=== PATIENT | female | born 1965 | race Caucasian/White ===

== ENCOUNTER 2018-10-21 16:43 | Emergency (ER) | payer BC, OTHER ==
[2018-10-21 17:54] VITALS: BP 132/87
--- NOTE | 2018-10-21 18:37 | UC ---
UC General HPI - HPI Summary HPI Summary: 2 week hx worsening sinus pain, pressure and congestion. + headache and chills. hx thyroiditis and thinks may be having a little flare. she called her pcp and has an appointment for that in 1 week. the thyroid is not her concern now. no cp or palpitations. pt notes a hx of sinsuitis and the is the same. she has tried several otc tx's with no relief. - History of Current Complaint Chief Complaint: UCRespiratory Stated Complaint: SINUSES,CHILLS Time Seen by Provider: 10/21/18 18:29 Hx Obtained From: Patient Hx Last Menstrual Period: 2006 Onset/Duration: Gradual Onset Timing: Constant Pain Intensity: 6 Associated Signs & Symptoms: Negative: Chest Pain - Allergy/Home Medications Allergies/Adverse Reactions: Allergies Allergy/AdvReac Type Severity Reaction Status Date / Time erythromycin base Allergy Rash Verified 10/21/18 17:56 Penicillins Allergy Rash Verified 10/21/18 17:56 Home Medications: Home Medications Acetaminophen TAB* [Tylenol TAB*] 600 mg PO DAILY PRN 10/21/18 [History Confirmed 10/21/18] Ibuprofen TAB* [Motrin TAB* 800 MG] 800 mg PO Q4H PRN 10/21/18 [History Confirmed 10/21/18] Levothyroxine TAB* [Synthroid TAB*] 75 mcg PO DAILY 10/21/18 [History Confirmed 10/21/18] Topiramate TAB(*) [Topamax 25 MG tab] 25 mg PO BID 10/21/18 [History Confirmed 10/21/18] PMH/Surg Hx/FS Hx/Imm Hx - Additional Past Medical History Additional PMH: fluid retention Endocrine History: Thyroid Disease Neurological History: Migraine Psychological History: Depression - Surgical History Surgical History: Yes Surgery Procedure, Year, and Place: Hysterectomy, 4 , [facility], gallbladder , tonsilectomy,colon polyps - Social History Alcohol Use: None Substance Use Type: None Smoking Status (MU): Never Smoked Tobacco Review of Systems All Other Systems Reviewed And Are Negative: Yes Constitutional: Positive: Chills ENT: Positive: Nasal Discharge, Sinus Congestion, Sinus Pain/Tenderness Cardiovascular: Negative: Palpitations, Chest Pain Neurological: Positive: Headache Psychological: Negative: Anxious Physical Exam Triage Information Reviewed: Yes Appearance: Well-Appearing Vital Signs: Initial Vital Signs Temp 98.7 F 10/21/18 17:47 Pulse 95 10/21/18 17:47 Resp 18 10/21/18 17:47 BP 132/87 10/21/18 17:47 Pulse Ox 97 10/21/18 17:47 Vital Signs Reviewed: Yes Eyes: Positive: Conjunctiva Clear ENT: Positive: Pharynx normal, Nasal congestion, TMs normal, Sinus tenderness - frontal Neck: Positive: Supple, Nontender, No Lymphadenopathy, Other: - Thyroid nodules not appreciated and thyroid non tender. Respiratory: Positive: Lungs clear, Normal breath sounds, No respiratory distress Cardiovascular: Positive: RRR, No Murmur Abdomen Description: Positive: Nontender, No Organomegaly, Soft Bowel Sounds: Positive: Present Musculoskeletal: Positive: ROM Intact Neurological: Positive: Alert Psychological: Positive: Age Appropriate Behavior Skin Exam: Normal Course/Dx - Differential Dx - Multi-Symptom Differential Diagnoses: Other - nothing to suggest thyroid storm. thyroid condition is chronic and reoccuring plus pt has consulted her pcp and has f/u. exam c/w sinusitis. - Diagnoses Provider Diagnosis: Sinusitis Discharge - Sign-Out/Discharge Documenting (check all that apply): Patient Departure All imaging exams completed and their final reports reviewed: No Studies - Discharge Plan Condition: Stable Disposition: HOME Prescriptions: DOXYcycline CAP(*) [DOXYcycline 100MG CAP(*)] 100 mg PO BID 10 Days #20 cap Patient Education Materials: Sinusitis (ED) Referrals: David López MD [Primary Care Provider] - 7 Days - Billing Disposition and Condition Condition: STABLE Disposition: Home
== END 2018-10-21 18:47 | disposition home or self-care (01) ==
LOC: UCCORT 16:43
DX: J32.9 Chronic sinusitis, unspecified (principal); E07.9 Disorder of thyroid, unspecified; Z88.1 Allergy status to other antibiotic agents; Z88.0 Allergy status to penicillin; Z79.899 Other long term (current) drug therapy
CPT/HCPCS: 99212; G0463

== ENCOUNTER 2019-06-12 08:31 | Emergency (ER) | payer BC ==
[2019-06-12 09:02] VITALS: BP 122/78
--- NOTE | 2019-06-12 09:47 | ED ---
Headache - HPI Summary HPI Summary: 53 yr old female with a month long headache that she states has not gone away. Headache is generalized but also mostly in the back of the head. She has ringing in the ears. She has neck pain as well. She has light sensitivity. She states the headache is 7/10. She has blurred vision at times. She denies focal weakness, numbness, gait change. She states she has had headaches for 10 years, no imaging or work up, and the symptoms have gotten worse now. - History Of Current Complaint Chief Complaint: UCHeadache Stated Complaint: MIGRAINE Time Seen by Provider: 06/12/19 09:31 Hx Last Menstrual Period: 2006 - Allergies/Home Medications Allergies/Adverse Reactions: Allergies Allergy/AdvReac Type Severity Reaction Status Date / Time erythromycin base Allergy Rash Verified 06/12/19 09:02 Penicillins Allergy Rash Verified 06/12/19 09:02 PMH/Surg Hx/FS Hx/Imm Hx Endocrine/Hematology History: Reports: Hx Thyroid Disease - hypo Denies: Hx Diabetes, Hx Anemia Cardiovascular History: Denies: Hx Hypertension Respiratory History: Denies: Hx Asthma, Hx Chronic Obstructive Pulmonary Disease (COPD) GI History: Denies: Hx Jaundice, Hx Ulcer - Cancer History Cancer Type, Location and Year: colon polyps CA - Surgical History Surgery Procedure, Year, and Place: Hysterectomy, 4 , [facility], gallbladder , tonsilectomy,colon polyps Hx Anesthesia Reactions: No Infectious Disease History: No Infectious Disease History: Denies: Hx Hepatitis, Hx Human Immunodeficiency Virus (HIV), Traveled Outside the [place] in Last 30 Days - Family History Known Family History: Positive: None - Social History Alcohol Use: None Substance Use Type: Reports: None Smoking Status (MU): Never Smoked Tobacco Review of Systems Constitutional: Negative Positive: Headache All Other Systems Reviewed And Are Negative: Yes Physical Exam Triage Information Reviewed: Yes Vital Signs On Initial Exam: Initial Vitals Temp Pulse Resp BP Pulse Ox 98.1 F 69 18 122/78 97 06/12/19 08:54 06/12/19 08:54 06/12/19 08:54 06/12/19 08:54 06/12/19 08:54 Vital Signs Reviewed: Yes Appearance: Positive: Well-Appearing, No Pain Distress Skin: Positive: Warm, Skin Color Reflects Adequate Perfusion Head/Face: Positive: Normal Head/Face Inspection ENT: Positive: Pharynx normal Neck: Positive: Nontender Respiratory/Lung Sounds: Positive: Clear to Auscultation, Breath Sounds Present Cardiovascular: Positive: RRR. Negative: Murmur Abdomen Description: Positive: Nontender. Negative: Distended Musculoskeletal: Positive: Strength/ROM Intact Neurological: Positive: Sensory/Motor Intact, Alert, Oriented to Person Place, Time, CN Intact II-III, Normal Gait, Speech Normal Psychiatric: Positive: Normal Diagnostics - Vital Signs Vital Signs Temp Pulse Resp BP Pulse Ox 06/12/19 08:54 98.1 F 69 18 122/78 97 - Laboratory Lab Statement: Any lab studies that have been ordered have been reviewed, and results considered in the medical decision making process. Headache Course/Dx - Course Course Of Treatment: 53 yr old with headache and intermittent blurred vision, Recommend to ER for further evaluation. She signed out AMA. refusal of ambulance transport. - Diagnoses Provider Diagnoses: Headache, Blurred vision Discharge ED - Sign-Out/Discharge Documenting (check all that apply): Patient Departure All imaging exams completed and their final reports reviewed: No Studies - Discharge Plan Condition: Good Disposition: AGAINST MEDICAL ADVICE Referrals: David López MD [Primary Care Provider] - - Billing Disposition and Condition Condition: GOOD Disposition: Against Medical Advice
== END 2019-06-12 09:43 | disposition left against medical advice (07) ==
LOC: UCCORT 08:31
DX: R51 Headache (principal); H53.8 Other visual disturbances; Z88.1 Allergy status to other antibiotic agents; Z88.0 Allergy status to penicillin; Z85.038 Personal history of other malignant neoplasm of large intestine
CPT/HCPCS: 99212; G0463